=== PATIENT | male | born 1955 | race Caucasian/White ===

== ENCOUNTER 2019-02-01 00:59 | Outpatient (CLI) | payer OTHER, SELFPAY ==
[2019-02-01 10:28] LABS: ALT 36 U/L (12-78); AST 20 U/L (15-37); Albumin 3.8 g/dL (3.4-5.0); Alkaline Phosphatase 91 U/L (46-116); Anion Gap 12.6 mmol/L (3-11); BUN 27 mg/dL (7-18); Bilirubin, Total 0.4 mg/dL (0.2-1.0); CO2 24.4 mmol/L (21.0-32.0); CREATININE 0.96 mg/dL (0.70-1.30); Calcium 8.7 mg/dL (8.5-10.1); Calculated LDL 57 mg/dL; Chloride 107 mmol/L (98-107); Cholesterol 115 mg/dL (50-200); Glucose 109 mg/dL (70-100); HDL Cholesterol 48 mg/dL (40-60); Potassium 4.4 mmol/L (3.5-5.1); Sodium 144 mmol/L (136-145); Total Protein 6.8 g/dL (6.4-8.2); Triglyceride 51 mg/dL (30-150)
[2019-02-03 10:12] LABS: PSA, Screening 0.3 ng/ml (0-4.5)
== END 2019-02-01 01:19 ==
PROVIDERS: PCP Family Medicine; Visit Provider Family Medicine
DX: E78.5 Hyperlipidemia, unspecified (principal); I10 Essential (primary) hypertension; Z00.00 Encounter for general adult medical examination without abnormal findings; Z12.5 Encounter for screening for malignant neoplasm of prostate
CPT/HCPCS: 36415; 80053; 80061; 83721; 84153

== ENCOUNTER 2019-05-01 00:37 | Outpatient (CLI) | payer OTHER, SELFPAY ==
[2019-05-01 07:14] LABS: Abs Immature Grans 0.01 k/cumm (0.0-0.09); Absolute Basophil Count 0.01 k/cumm (0.0-0.2); Absolute Eosinophil Count 0.15 k/cumm (0.0-0.7); Absolute Lymphocyte Count 1.26 k/cumm (1.2-3.4); Absolute Monocyte Count 0.38 k/cumm (0.11-0.7); Absolute Neutrophil Count 2.54 k/cumm (1.2-6.7); Basophils % 0.2; Eosinophils % 3.4; HCT 42.9 % (40.0-50.0); HGB 14.9 g/dL (13.5-17.5); Immature Grans % 0.2; Mean Corp. HGB Concentration 34.7 g/dL (32.0-36.0); Mean Corpuscular Hemoglobin 32.3 pg (27.0-33.0); Mean Corpuscular Volume 92.9 fL (80-95); Mean Platelet Volume 8.9 fL (8.0-11.0); Monocytes % 8.7; Neutrophils % 58.5; Platelet Count 174 x1000/uL (130-400); RBC 4.62 m/cumm (4.50-6.00); RBC Distribution Width 12.3 % (11.8-14.1); White Blood Cell Count 4.35 k/cumm (4.4-10.8)
[2019-05-01] MEDS: Omnipaque 350 MG/ML 50 ML BTL IJ (07:14)
[2019-05-01 07:21] LABS: CREATININE 1.06 mg/dL (0.70-1.30)
[2019-05-01 07:25] LABS: C-Reactive Protein < 0.05 mg/dL (0.0-0.3)
--- NOTE | 2019-05-01 08:32 | DI.CT_ITS ---
EXAM: CT ABDOMEN PELVIS W CT ABDOMEN PELVIS W CLINICAL HISTORY: low abd pain,abnl wt loss,r63.4,r10.9. low abd pain,abnl wt loss,r63.4,r10.9 TECHNIQUE: Imaging Protocol: Axial computed tomography images with coronal and sagittal reformatted images were created and reviewed Images were performed from the lung bases through the ischial tuberosities after IV and oral contrast . CONTRAST MATERIAL: Intravenous: Omnipaque 350 Contrast volume:structured data in ml Contrast route:I V - Oral: yes COMPARISON: No exams were available for comparison FINDINGS: ABDOMEN: Lung Bases: Normal where visualized. The heart size is normal. Coronary artery calcifications are no shantal. Liver: Normal density. No measurable mass. Gallbladder and biliary tract: No radiodense calculus or dilation. Pancreas: Normal density, no abnormal calcifications or inflammatory process. Spleen: Normal. Kidneys: Normal size, contour and axis. No radiodense stones or obstructive uropathy. No masses seen. Adrenal glands: No masses seen. Abdominal Aorta: Abdominal portion non-dilated. Mild atherosclerotic changes. PELVIS: Bladder: No gross wall thickening, focal mass or stones. Bowel: No obstruction or bowel wall thickening. Peritoneal cavity: No ascites, focal collection or mesenteric inflammatory response. Bones: No suspicious lesions or fractures. Reproductive organs: Degenerative disc changes are noted at L4-5 and L5-S1. Lymph nodes: Unremarkable. There are bilateral fatty containing inguinal hernias and a small fatty umbilical hernia. Impression: Unremarkable CT scan of the abdomen and pelvis. DATA REPOSITORY: All CT scans at this facility are submitted to the National Radiology Data Registry (NRDR) Dose Index Registry (DIR) with the [employer] (ACR). RADIATION OPTIMIZATION: All CT scans at this facility use at least one of these dose optimization te chniques: automated exposure control; mA and/or kV adjustment per patient size (includes targeted exa ms where dose is matched to clinical indication); or iterative reconstruction.
[2019-05-01] MEDS: Omnipaque 350 MG/ML 100 ML BTL IJ (08:34)
== END 2019-05-01 00:57 ==
PROVIDERS: PCP Family Medicine; Visit Provider Emergency Medicine
DX: R10.31 Right lower quadrant pain (principal); R10.32 Left lower quadrant pain; R63.4 Abnormal weight loss; K40.20 Bilateral inguinal hernia, without obstruction or gangrene, not specified as recurrent; K42.9 Umbilical hernia without obstruction or gangrene
CPT/HCPCS: 74177; 82565; 85025; 86140; J3490; Q9967

== ENCOUNTER 2020-01-12 03:13 | Outpatient (CLI) | payer OTHER, SELFPAY ==
[2020-01-12 07:58] LABS: Hemoglobin A1C 5.5 % (3.8-5.6)
[2020-01-12 08:31] LABS: ALT 37 U/L (16-63); AST 27 U/L (15-37); Albumin 4.2 g/dL (3.4-5.0); Alkaline Phosphatase 101 U/L (46-116); Anion Gap 10.6 mmol/L (3-11); BUN 18 mg/dL (7-18); Bilirubin, Total 0.7 mg/dL (0.2-1.0); CO2 24.4 mmol/L (21.0-32.0); CREATININE 1.22 mg/dL (0.70-1.30); Calculated LDL 72 mg/dL (<100); Chloride 103 mmol/L (98-107); Cholesterol 132 mg/dL (<200); Glucose 171 mg/dL (74-106); HDL Cholesterol 45 mg/dL (40-60); Potassium 4.2 mmol/L (3.5-5.1); Sodium 138 mmol/L (136-145); Total Protein 7.1 g/dL (6.4-8.2); Triglyceride 79 mg/dL (<150)
[2020-01-13 09:43] LABS: PSA, Screening 0.3 ng/mL (0.0-4.5)
== END 2020-01-12 03:33 ==
PROVIDERS: PCP Family Medicine; Visit Provider Family Medicine
DX: E78.5 Hyperlipidemia, unspecified (principal); I10 Essential (primary) hypertension; Z00.00 Encounter for general adult medical examination without abnormal findings; E11.9 Type 2 diabetes mellitus without complications; Z12.5 Encounter for screening for malignant neoplasm of prostate
CPT/HCPCS: 36415; 80053; 80061; 84153; 83036

== ENCOUNTER 2021-06-17 18:49 | Outpatient (REF) | payer OTHER, SELFPAY ==
[2021-06-19 06:00] LABS: COVID-19 RT-PCR UVMMC Result Positive (Negative)
== END 2021-06-17 18:50 | disposition home or self-care (01) ==
LOC: LBN 18:49
PROVIDERS: PCP Family Medicine; Visit Provider Physician Assistant
DX: Z20.822 Contact with and (suspected) exposure to COVID-19 (principal)
CPT/HCPCS: U0003

== ENCOUNTER 2021-07-18 00:27 | Outpatient (CLI) | payer OTHER, SELFPAY ==
--- NOTE | 2021-07-18 09:00 | ETT_ITS ---
APPROVED REPORT Exam: Exercise Treadmill Patient Location: Out-Patient Room/Bed: Stress Nurse: Jojo Madden RN Ordering Provider:VIET CARDENAS, Contact Number: [phone] BMI: 33.44 Baseline Rhythm: Sinus Rhythm Comment: Baseline ST-T abnormalities V2-V5 Indications: CAD, hyperlipidemia Medical History Medical History: Hypertension, hyperlipidemia, PRETTY, CAD, myocardial infarction 2013, GERD Cardiac Medications: Lisinopril, aspirin, nitroglycerin Allergies: Enoxaparin Cardiac Risk Factors: Hypertension, hyperlipidemia, smoker (former), CVD, family hx Previous Cardiac Procedures: pci w/ stent 10/2013 Pretest Chest Pain Characteristics: None Exercise History: Sedentary Physical Disabilities: None Lung Sounds: Clear to auscultation, Clear to auscultation Heart Sounds: Tachycardia Stress Test Details Test: Exercise stress testing was performed using a Yosef protocol. Rest Stress HR Resting HR Supine: 98 bpm Max Heart Rate (APMHR): 154 bpm Resting HR Standin bpm Target HR (85% APMHR): 130 bpm Max HR Achieved: 156 bpm % of APMHR: 101 Recovery HR: 105 bpm HR response to stress: Normal HR response to stress BP Resting BP Supine: 158/90 mmHg Resting BP Standin/92 mmHg Max BP: 198/100 mmHg Recovery BP: 130/86 mmHg BP response to stress: Normal blood pressure response to stress. ECG Resting ECG: Sinus Rhythm Ectopy: None Comment: Baseline ST-T abnormalities V2-V5 Stress ECG: Sinus Tachycardia ST Change: No significant ST segment changes noted Arrhythmia: Occasional multifocal PVCs Recovery ECG: Sinus Tachycardia Recovery ST Change: No significant ST segment changes noted Recovery Arrhythmia: Rare PACs, occasional multifocal PVCs Clinical Reason for Termination: Fatigue Stress Symptoms: General Fatigue, mild dyspnea Exercise duration: 9 min00 sec Highest Stage Reached: Stage 3: 3.4 mph at 14% grade. Exercise capacity: 10.16 METs Sylvester Treadmill Score: 8.1 Rate Pressure Product: 97799 Stress ECG Conclusion 1. Resting electrocardiogram shows left anterior fascicular block, old anterior myocardial infarction 2. Patient exercised on the Yosef protocol and completed a workload of 10.16 METS, limited by fatigue 3. Normal heart rate and blood pressure response to exercise. The patient achieved greater than 100% of predicted heart rate for age 4. Electrocardiographically there was no evidence of myocardial ischemia 5. Atrial and ventricular ectopic beats were noted Sylvester Treadmill Score is 8.1 which is Low risk. Stress Test Summary STAGE Time (mins) Speed (mph) Grade (%) HR BP SYMPTOMS METS Supine 98 158/90 Standing 110 160/92 SpO2 96% 1 3 1.7 10 135 182/100 SpO2 96% 4.6 2 6 2.5 12 148 196/102 Mild SOB, SpO2 96% 7 3 9 3.4 14 154 198/100 SpO2 97% 10.2 1 min recovery 145 196/98 SpO2 97% 3 min recovery 118 160/90 SOB resolved, SpO2 97% 6 min recovery 110 140/90 SpO2 97% 9 min recovery 105 130/86 SpO2 97%
== END 2021-07-18 00:47 ==
PROVIDERS: PCP Family Medicine; Visit Provider Family Medicine
DX: E78.5 Hyperlipidemia, unspecified (principal); I10 Essential (primary) hypertension; I25.10 Atherosclerotic heart disease of native coronary artery without angina pectoris; Z87.891 Personal history of nicotine dependence; Z82.49 Family history of ischemic heart disease and other diseases of the circulatory system; I49.3 Ventricular premature depolarization; I44.4 Left anterior fascicular block; I49.1 Atrial premature depolarization
CPT/HCPCS: 93017

== ENCOUNTER 2021-07-25 03:42 | Outpatient (CLI) | payer OTHER, SELFPAY ==
[2021-07-25 09:04] LABS: Hemoglobin A1C 5.7 % (<5.7)
[2021-07-25 09:47] LABS: ALT 46 U/L (16-63); AST 27 U/L (15-37); Albumin 4.3 g/dL (3.4-5.0); Alkaline Phosphatase 104 U/L (46-116); Anion Gap 10.4 mmol/L (3-11); BUN 19 mg/dL (7-18); Bilirubin, Total 0.8 mg/dL (0.2-1.0); CO2 25.6 mmol/L (21.0-32.0); CREATININE 1.2 mg/dL (0.70-1.30); Calcium 9.2 mg/dL (8.5-10.1); Calculated LDL 64 mg/dL (<100); Chloride 102 mmol/L (98-107); Cholesterol 138 mg/dL (<200); Glucose 121 mg/dL (74-106); HDL Cholesterol 52 mg/dL (40-60); Potassium 4.1 mmol/L (3.5-5.1); Sodium 138 mmol/L (136-145); TSH (W/Ref FT4) 1.87 uIU/mL (0.36-3.74); Total Protein 7.5 g/dL (6.4-8.2); Triglyceride 112 mg/dL (<150)
[2021-07-25 18:20] LABS: PSA, Diagnostic 0.4 ng/mL (0.0-4.5)
== END 2021-07-25 03:43 | disposition home or self-care (01) ==
LOC: LBO 03:43
PROVIDERS: PCP Family Medicine; Visit Provider Family Medicine
DX: E11.9 Type 2 diabetes mellitus without complications (principal); E78.5 Hyperlipidemia, unspecified; I10 Essential (primary) hypertension; N28.9 Disorder of kidney and ureter, unspecified; Z00.00 Encounter for general adult medical examination without abnormal findings; N40.0 Benign prostatic hyperplasia without lower urinary tract symptoms
CPT/HCPCS: 36415; 80053; 80061; 83036; 84153; 84443

== ENCOUNTER 2022-11-29 03:29 | Outpatient (CLI) | payer OTHER, SELFPAY ==
[2022-11-29 09:58] LABS: HCT 42.4 % (40.0-50.0); HGB 14.6 g/dL (13.5-17.5); MCH 32.2 pg (27.0-33.0); MCHC 34.4 % (32.0-36.0); MCV 94 fL (80-95); MPV 8.4 fL (8.0-11.0); Platelet Count 161 10^3/uL (130-400); RBC 4.53 10^6/uL (4.36-5.78); RDW 11.8 % (11.8-14.1); RDW-SD 40.7 fL; WBC 4.78 10^3/uL (4.4-10.8)
[2022-11-29 10:26] LABS: Hemoglobin A1C 6.2 % (<5.7)
[2022-11-29 11:00] LABS: ALT 59 U/L (16-63); AST 39 U/L (15-37); Alkaline Phosphatase 97 U/L (46-116); Anion Gap 10.9 mmol/L (3-11); BUN 25 mg/dL (7-18); Bilirubin, Total 0.5 mg/dL (0.2-1.0); CO2 25.1 mmol/L (21.0-32.0); CREATININE 1.1 mg/dL (0.70-1.30); Calcium 9.3 mg/dL (8.5-10.1); Calculated LDL 54 mg/dL (<100); Chloride 105 mmol/L (98-107); Cholesterol 123 mg/dL (<200); Estimated GFR 73.58 (mL/min/1.73m2); Glucose 157 mg/dL (74-106); HDL Cholesterol 51 mg/dL (40-60); Potassium 4.4 mmol/L (3.5-5.1); Sodium 141 mmol/L (136-145); TSH (W/Ref FT4) 2.04 uIU/mL (0.36-3.74); Total Protein 7.6 g/dL (6.4-8.2); Triglyceride 94 mg/dL (<150)
== END 2022-11-29 03:30 | disposition home or self-care (01) ==
LOC: LBO 03:29
PROVIDERS: PCP Family Medicine; Visit Provider Family Medicine
DX: E11.9 Type 2 diabetes mellitus without complications (principal); E78.5 Hyperlipidemia, unspecified; I25.10 Atherosclerotic heart disease of native coronary artery without angina pectoris; G47.30 Sleep apnea, unspecified
CPT/HCPCS: 36415; 80053; 80061; 85027; 83036; 84443

== ENCOUNTER 2023-03-12 11:54 | Outpatient (CLI) | payer OTHER, SELFPAY ==
--- NOTE | 2023-03-12 11:45 | RT.EKG_ITS ---
APPROVED REPORT Exam: Resting ECG Reason for Exam: Tachycardia Patient Location: O HR:59 bpm ECG Measurements Heart Rate 59 AXIS AR 182 P 17 QRSd 97 QRS -47 QT 429 T 75 QTc 425 Conclusion Sinus rhythm...normal P axis, V-rate 50- 99 Inferior infarct, old...Q >35mS, II III aVF Anterior infarct, age indeterminate...Q >35mS, T neg, in V2-V5 I have reviewed and I agree with the emergency room physician's ECG interpretation.
== END 2023-03-12 11:55 | disposition home or self-care (01) ==
LOC: DI.CM 11:54
PROVIDERS: PCP Family Medicine; Visit Provider Family Medicine
DX: R00.0 Tachycardia, unspecified (principal)
CPT/HCPCS: 93010

== ENCOUNTER 2023-04-05 08:54 | Outpatient (RCR) | payer OTHER, SELFPAY ==
--- NOTE | 2023-04-05 09:00 | HOLTER_ITS ---
APPROVED REPORT Conclusion This is a 48-hour Holter monitor ordered for tachycardia Rhythm throughout was sinus with an average heart rate of 77. Minimum was 54, maximum 126 There were very rare isolated atrial premature beats There were occasional ventricular ectopic beats There was no atrial fibrillation, no SVT, no high-grade AV block, no pauses greater than 3 seconds No patient symptoms were reported
== END 2023-04-14 23:59 | disposition home or self-care (01) ==
LOC: CARDOPNVT 08:54
PROVIDERS: PCP Family Medicine; Visit Provider Family Medicine
DX: R00.0 Tachycardia, unspecified (principal)
CPT/HCPCS: 93225; 93226

== ENCOUNTER 2023-05-24 02:20 | Outpatient (CLI) | payer OTHER, SELFPAY ==
[2023-05-24 11:28] LABS: ESR 5 mm/hr (0-20)
[2023-05-24 11:29] LABS: HCT 43.6 % (40.0-50.0); HGB 14.9 g/dL (13.5-17.5); MCH 31.4 pg (27.0-33.0); MCHC 34.2 % (32.0-36.0); MCV 92 fL (80-95); MPV 8.4 fL (8.0-11.0); Platelet Count 176 10^3/uL (130-400); RBC 4.74 10^6/uL (4.36-5.78); RDW 11.8 % (11.8-14.1); RDW-SD 39.7 fL; WBC 5.76 10^3/uL (4.4-10.8)
[2023-05-24 12:23] LABS: Hemoglobin A1C 5.7 % (<5.7)
[2023-05-24 13:02] LABS: ALT 57 U/L (16-63); AST 41 U/L (15-37); Albumin 4.4 g/dL (3.4-5.0); Alkaline Phosphatase 88 U/L (46-116); Anion Gap 10.3 mmol/L (3-11); BUN 21 mg/dL (7-18); Bilirubin, Total 0.5 mg/dL (0.2-1.0); CO2 24.7 mmol/L (21.0-32.0); CREATININE 1.1 mg/dL (0.70-1.30); Calculated LDL 54 mg/dL (<100); Chloride 103 mmol/L (98-107); Cholesterol 138 mg/dL (<200); Estimated GFR 73.12 (mL/min/1.73m2); Glucose 119 mg/dL (74-106); HDL Cholesterol 56 mg/dL (40-60); Potassium 4.2 mmol/L (3.5-5.1); Sodium 138 mmol/L (136-145); Triglyceride 144 mg/dL (<150)
[2023-05-24 15:17] LABS: GGT 140 U/L (15-85)
== END 2023-05-24 02:21 | disposition home or self-care (01) ==
LOC: LBO 02:20
PROVIDERS: PCP Family Medicine; Visit Provider Family Medicine
DX: I10 Essential (primary) hypertension (principal); I25.2 Old myocardial infarction; R53.83 Other fatigue; E11.9 Type 2 diabetes mellitus without complications
CPT/HCPCS: 36415; 80053; 80061; 85027; 85652; 82977; 83036

== ENCOUNTER → 2023-06-04 02:08 | Outpatient (CLI) | payer OTHER, SELFPAY ==
--- NOTE | 2023-06-04 07:30 | ETT_ITS ---
APPROVED REPORT Exam: Exercise Treadmill Patient Location: Out-Patient Room/Bed: Stress Nurse: Trent Lopes RN Ordering Provider:VIET CADRENAS, Contact Number: [phone] BMI: 34.76 Baseline Rhythm: Sinus Tachycardia Comment: 2 episodes of sudden decrease HR to 74 rebounding to 104 spontanioulsy. Indications: Old [place]. Fatigue. CDL requirement. Medical History Medical History: [place],Sleep apnea, HTN, HLD, abnormal renal function. Cardiac Medications: ASA, Atorvastatin, Lisinopril, Metoprolol, Pantoprozole. Allergies: Lovenox. Cardiac Risk Factors: HTN, Hyperlipidemia, TX, sleep apnea. Previous Cardiac Procedures: Stent. Pretest Chest Pain Characteristics: No chest pain Exercise History: Physically active Lung Sounds: clear Heart Sounds: Regular Stress Test Details Test: Exercise stress testing was performed using a Yosef protocol. Rest Stress HR Resting HR Supine: 104 bpm Max Heart Rate (APMHR): 152 bpm Resting HR Standin bpm Target HR (85% APMHR): 129 bpm Max HR Achieved: 152 bpm % of APMHR: 100 Recovery HR: 105 bpm HR response to stress: Normal HR response to stress BP Resting BP Supine: 130/86 mmHg Resting BP Standin/96 mmHg Max BP: 150/96 mmHg Recovery BP: 122/80 mmHg BP response to stress: Normal blood pressure response to stress. ECG Resting ECG: Sinus Tachycardia Ectopy: None Stress ECG: Sinus Tachycardia ST Change: No significant ST segment changes noted Arrhythmia: Ocasional Unifocal PVC. Recovery ECG: Sinus Tachycardia. Recovery Arrhythmia: None Clinical Reason for Termination: Fatigue, Target HR Achieved Exercise duration: 5 min33 sec Highest Stage Reached: 2 Exercise capacity: 7.05 METs Angina Score: None Sylvester Treadmill Score: 5.4 Rate Pressure Product: 32609 Stress ECG Conclusion 1. Resting electrocardiogram showed low voltage, poor R wave progression possible old anterior infarc t 2. Patient exercised on the Yosef protocol completed a workload of 7 METS 3. Normal heart rate blood pressure response to exercise. Patient achieved 100% of predicted heart r ate for age 4. There was no electrocardiographic evidence of myocardial ischemia 5. There were no significant dysrhythmias Sylvester Treadmill Score is 5.4 which is Low risk. Stress Test Summary STAGE Time (mins) Speed (mph) Grade (%) HR BP SpO2 SYMPTOMS METS Supine 104 130/86 97 Standing 110 146/96 1 3 1.7 10 140 150/96 96 4.5 1 min recovery 138 179/72 98 3 min recovery 114 150/86 6 min recovery 105 122/80 98
== END ==
PROVIDERS: PCP Family Medicine; Visit Provider Family Medicine
DX: I25.2 Old myocardial infarction (principal); R53.83 Other fatigue
CPT/HCPCS: 93017

== ENCOUNTER 2023-12-18 09:02 | Day surgery (SDC) | payer OTHER, SELFPAY ==
--- NOTE | 2023-12-17 14:07 | NUR.NOTE ---
Patient was very short on the phone during Pre op phone call. Reports he doesn't really know all his medications. Patient reports he will look at his list later. Unable to truly verify the medications completely. Patient called because he was concerned about starting the prep when [facility] has no water. Patient told that at this time his procedure was still going to proceed as planned. Nursing Note:
[2023-12-18 09:10] VITALS: BP 112/70; PULSE 61; RESP 16; TEMP 36.2; O2SAT 98
--- NOTE | 2023-12-18 09:17 | W.ANESPRE ---
General Info Date of Service Date Performed: 12/18/23 Height: 5 ft 7 in Weight: 99.337 kg Body Mass Index (BMI): 34.2 Surgical Procedure: Operation Date: 12/18/23 10:35 Proposed Procedure Side Surgeon neda He MD Meds Allergies and Home Medications Allergies Allergy/AdvReac Type Severity Reaction Status Date / Time enoxaparin sodium Allergy Intermediate RASH Verified 12/18/23 09:38 [From Lovenox] Home Medication Medication Instructions Recorded acetaminophen 500 mg tablet 1,000 mg PO Q4H PRN 12/21/14 aspirin,buffered (calcium 325 mg PO DAILY ##1 09/28/16 carbonate-magnesium) 325 mg tablet cbd PO HS 07/31/22 lisinopril 10 mg tablet 10 mg PO BID #180 tab-caps 02/19/23 atorvastatin 80 mg tablet 80 mg PO DAILY #90 tab-caps 12/14/23 metoprolol succinate 25 mg 25 mg PO DAILY #90 tabs 12/14/23 tablet,extended release 24 hr nitroglycerin 0.4 mg sublingual 0.4 mg sublingual as directed PRN 12/14/23 tablet chest pain #25 tabs pantoprazole 40 mg tablet,delayed 40 mg PO DAILY #90 tab-caps 12/14/23 release rnwwreoy-yciijdti-djuqk acid 400 1 tab PO HS 12/18/23 mcg-vit K 20 mcg-lycop 300 mcg tablet (One-A-Day Men's Multivitamin) sour curtis extract 1,000 mg 1,200 mg PO DAILY AM 12/18/23 capsule (Tart Curtis Extract) Current Visit Medications: Current Medications Generic Name Dose Route Start Last Admin Trade Name Alexq PRN Reason Stop Dose Admin Ringer's Solution 1,000 mls @ 80 mls/hr 12/18/23 06:00 IV 12/18/23 23:59 INFUSION RIZWAN IV Miscellaneous Supplies 1 each 12/18/23 06:00 Iv Access IV 12/18/23 23:59 DIRECTED RIZWAN Sodium Chloride 0 ml 12/18/23 06:00 Normal Saline Flush 10 Ml Syr IV 12/18/23 23:59 PRN PRN Sodium Chloride 0 ml 12/18/23 06:00 Normal Saline 10 Ml Vial IJ 12/18/23 23:59 DIRECTED PRN Sterile Water 0 ml 12/18/23 06:00 Water,Injection,Sterile 10 Ml Vial IJ 12/18/23 23:59 DIRECTED PRN [facility] Active Problems Active Problems: Problem Status Onset Code Tremor R25.1 Adenoma D36.9 Headache R51.9 Fatigue R53.83 History of [place] (myocardial infarction) I25.2 Tachycardia R00.0 CAD (coronary artery disease) I25.10 COVID-19 ~06/2021 U07.1 Left elbow pain M25.522 Rastafari tenderness R51 Tremor of left hand R25.1 Left foot pain M79.672 Annual physical exam Z00.00 Sleep apnea G47.30 Varicose veins of lower extremity I83.90 Primary malignant neoplasm of colon C18.9 Low back pain M54.5 Hyperlipidemia E78.5 Frequent nosebleeds 05/29/17 R04.0 Essential hypertension 04/30/13 I10 Diverticulosis of colon without diverticulitis K57.30 Alcohol intake above recommended sensible limits Z72.89 Acute myocardial infarction 11/10/13 I21.9 Abnormal renal function 03/01/14 N28.9 Medical History Medical History Abnormal renal function (03/01/14) Acute myocardial infarction (~2013) Acute myocardial infarction (11/10/13) [facility] [place] Acute shoulder pain 07/10/17 Acute shoulder pain (07/10/17) Adenomatous colon polyp 2008 Alcohol intake above recommended sensible limits presently no alcohol times 6 months 04/28 Annual physical exam (09/28/16) Diverticulosis of colon without diverticulitis Essential hypertension (04/30/13) Frequent nosebleeds (05/29/17) Generalized abdominal pain 06/14/03 H. Pylori-equivocal HTN (hypertension) Hyperlipidemia Hyperplastic polyp of large intestine 2011 Infectious mononucleosis Inguinal hernia bilateral, non-recurrent Low back pain Pneumonia h/o legionere's pneumonia Polyp of colon 11/13/11--hyperplastic Primary malignant neoplasm of colon 2007-malignant polyp removed colonoscopy 09/07/08 Sleep apnea probable; no W/U yet Sleep apnea Snoring Tubular adenoma X 2; 09/07/08 Varicose veins of lower extremity left scrotal Surgical History Surgical History Colonoscopy - MAC (03/05/17) 09/07/08 2 T.A. 11/13/11 HYPERPLASTIC POLYP S/P adenoidectomy S/P tonsillectomy S/P vasectomy Status post adenoidectomy Status post tonsillectomy Status post vasectomy Stent placement (~10/2013) [facility] [place]; RESOLUTE 3.0 mm X 18mm.[id number] Tonsillectomy and adenoidectomy Vasectomy Tobacco Smoking/Tobacco Use Status: Former Tobacco Use Passive smoking exposure: No Second hand exposure: Yes Alcohol Alcohol Intake: current Alcohol intake frequency: 3 or more drinks per day Alcohol type: beer and wine Substance Use Substance use: Never Substance use type: does not use Vital Signs and Lab Results Vital Signs Most Recent Vital Signs in EMR: Temp Pulse Resp BP Pulse Ox 36.2 C L 61 16 112/70 98 12/18/23 09:10 12/18/23 09:10 12/18/23 09:10 12/18/23 09:10 12/18/23 09:10 Lab Results Blood Type / Crossmatch: No Data to Display Complete Blood Count: No Data to Display Complete Metabolic Panel: No Data to Display Liver Function Panel: No Data to Display Coagulation Panel: No Data to Display Cardiac Panel: No Data to Display Arterial Blood Gas: No Data to Display Venous Blood Gas: No Data to Display Pancreas Panel: No Data to Display Thyroid Panel: No Data to Display Infectious Disease: No Data to Display Blood Cultures: No Data to Display Toxicology Panel: No Data to Display Imaging and Studies Imaging and Studies Study information below may be from another EMR and interpreted by another provider. Please see original notes in EMR for more complete details. EKG Summary: EKG PATIENT NAME: Rey Shen UNIT #: [id number] ORDERING PROVIDER: Yana Loza M.D., DC PRIMARY CARE PROVIDER: YANA LOZA MD, DC DATE/TIME OF SERVICE: 03/12/23 1144 : 1955 PERFORMING LOCATION: [facility] APPROVED REPORT Exam: Resting ECG Reason for Exam: Tachycardia Patient Location: O HR:59 bpm ECG Measurements Heart Rate 59 AXIS TN 182 P 17 QRSd 97 QRS -47 QT 429 T75 QTc 425 Conclusion Sinus rhythm...normal P axis, V-rate 50- 99 Inferior infarct, old...Q >35mS, II III aVF Anterior infarct, age indeterminate...Q >35mS, T neg, in V2-V5 I have reviewed and I agree with the emergency room physician's ECG interpretation. <Electronically signed by JENNIFER CEDILLO MD in OV> E-Sign Date: 03/13/23 E-Sign Time: 808 Stress Test Summary: STRESS TEST PATIENT NAME: Rey Shen UNIT #: [id number] ORDERING PROVIDER: Yana Loza M.D., DC PRIMARY CARE PROVIDER: YANA LOZA MD, DC DATE/TIME OF SERVICE: 06/04/23 ADMITTING PROVIDER: NGUYEN WALTON,JENNIFER CARPENTER : 1955 APPROVED REPORT Exam: Exercise Treadmill Patient Location: Out-Patient Room/Bed: Stress Nurse: Trent Lopes, RN Ordering Provider:YANA LOZA, Contact Number: [phone] BMI: 34.76 Baseline Rhythm: Sinus Tachycardia Comment: 2 episodes of sudden decrease HR to 74 rebounding to 104 spontanioulsy. 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 Fatigue. CDL requirement. Medical History Medical History: [place],Sleep apnea, HTN, HLD, abnormal renal function. Cardiac Medications: ASA, Atorvastatin, Lisinopril, Metoprolol, Pantoprozole. Allergies: Lovenox. Cardiac Risk Factors: HTN, Hyperlipidemia, IL, sleep apnea. Previous Cardiac Procedures: Stent. Pretest Chest Pain Characteristics: No chest pain Exercise History: Physically active Lung Sounds: clear Heart Sounds: Regular Stress Test Details Test: Exercise stress testing was performed using a Yosef protocol. Rest Stress HR Resting HR Supine: 104 bpmMax Heart Rate (APMHR): 152 bpm Resting HR Standin bpmTarget HR (85% APMHR): 129 bpm Max HR Achieved: 152 bpm % of APMHR: 100 Recovery HR: 105 bpm HR response to stress: Normal HR response to stress BP Resting BP Supine: 130/86 mmHg Resting BP Standin/96 mmHg Max BP: 150/96 mmHg Recovery BP: 122/80 mmHg BP response to stress: Normal blood pressure response to stress. ECG Resting ECG: Sinus Tachycardia Ectopy: None Stress ECG: Sinus Tachycardia ST Change: No significant ST segment changes noted Arrhythmia: Ocasional Unifocal PVC. Recovery ECG: Sinus Tachycardia. Recovery Arrhythmia: None Clinical Reason for Termination: Fatigue, Target HR Achieved Exercise duration: 5 min33 sec Highest Stage Reached: 2 Exercise capacity: 7.05 METs Angina Score: None Sylvester Treadmill Score: 5.4 Rate Pressure Product: 85132 Stress ECG Conclusion 1. Resting electrocardiogram showed low voltage, poor R wave progression possible old anterior infarct 2. Patient exercised on the Yosef protocol completed a workload of 7 METS 3. Normal heart rate blood pressure response to exercise. Patient achieved 100% of predicted heart rate for age 4. There was no electrocardiographic evidence of myocardial ischemia 5. There were no significant dysrhythmias Sylvester Treadmill Score is 5.4 which is Low risk. Stress Test Summary STAGETime (mins)Speed (mph)Grade (%)[id number] Tlbkwtlc079409/96 [id number]/80474.5 1 min [id number]/7298 3 min [id number]/86 6 min [id number] Dictated by: JENNIFER CEDILLO MDHERINE Dictated:: 06/04/231537 <Electronically signed by Jennifer Cedillo M.D. in OV> 06/04/231539 Transcribed Date: 06/04/23 Transcribed Time: 1537 By: RENARD This is privileged, confidential information, intended only for the provider named. Any use or distribution by any person other than this provider is strictly prohibited. If you receive this report in error, please notify us immediately at [phone] and return the original report to us at the addr Echocardiogram Summary: Reviewed Anesthesia Assessment and Plan Anesthesia History Personal History: No History of Anesthesia Complications Family History: No Family History of Anesthesia Complications Exercise Tolerance Exercise Tolerance: Metabolic Equivalents>4 Pertinent Negatives Pertinent Negatives: No Symptoms of GERD Cardiac & Pulmonary Exam Cardiac Exam: Normal S1/S2 Heart Sounds Pulmonary Exam: Clear Bilateral Breath Sounds Implantable Cardiac Device Does patient have a Pacemaker or an ICD?: No Airway Exam Known Difficult Airway: No Mallampati Class: 2 Mouth Opening: Normal (> 3cm) Thyromental Distance: Greater than 3 cm Neck Range of Motion: Full ROM Neck Circumference: Normal Teeth Condition: Normal Dentition ASA Classification ASA Score: ASA 3 Emergency Case?: No NPO Status NPO Status: NPO Clears >2 hours, Solids >8 hours Anesthesia Plan Resuscitation Status: Full Code Anesthesia Technique: General Anesthesia Airway Planned: Natural Airway Monitors Used: Standard Monitors
--- NOTE | 2023-12-18 10:10 | W.COLOREPORT ---
Date of service: 12/18/23 Time of Service: 10:11 Colonoscopy Report Procedure Description: PROCEDURES PERFORMED: 1. Colonoscopy PREOPERATIVE DIAGNOSIS: Surveillance colonoscopy POSTOPERATIVE DIAGNOSIS: Minimal sigmoid diverticular changes SURGEON: Calvin He MD INDICATION FOR PROCEDURE: the patient is a 68-year-old man due for a surveillance colonoscopy. He has no symptoms. Reportedly had a large polyp removed many years ago but colonoscopies since have been negative. FINDINGS: The terminal ileum was normal. No new polyps were found. In the sigmoid colon a large tattoo is noted with no evidence of polyp growth anywhere nearby or within the tattoo itself. The sigmoid colon has diverticular changes present but without bill diverticulosis yet. No significant hemorrhoid disease. Benign fibroepithelial tags both internal and external around the anus. SURVEILLANCE interval/FOLLOW-UP: I think the patient can go 10 years at this point before his next colonoscopy SPECIMENS: None EBL: Minimal COMPLICATIONS: None QUALITY of prep: Excellent Procedure in detail: The patient gave written consent and was in agreement with the indications, the potential risks as well as the benefits of the procedure. They were taken to the endoscopy suite and laid in the left lateral decubitus position. A timeout was performed and anesthesia was administered which was tolerated well. I started the procedure. Digital rectal and visual examination was performed and grossly within normal limits. A well-lubricated flexible colonoscope was then introduced and passed without any notable difficulty all the way to the cecum identified by the ileocecal valve and the appendiceal orifice. The terminal ileum was intubated and looked normal. The scope was then slowly withdrawn with the above-noted findings. The patient tolerated the procedure well and was taken to the PACU in hemodynamically stable condition.
--- NOTE | 2023-12-18 10:11 | W.PM.DSUDISC ---
Date of service: 12/18/23 Time of Service: 10:11 Discharge Plan Disposition Patient Disposition: Home Condition: Good Discharge Details Attending Provider: Kleber He Primary Care Provider: Yana Loza Home Meds and New Rx's Prescriptions: No Action cbd PO HS acetaminophen 500 MG tablet 1,000 mg PO Q4H PRN Patient Comments: 07/10/17 does not take. DL aspirin,buffd-calcium carb-mag 325 MG tablet 325 mg PO DAILY Qty: 1 lisinopril 10 mg tablet 10 mg PO BID Qty: 180 3RF nitroglycerin 0.4 mg tablet, sublingual 0.4 mg Sublingual as directed PRN (Reason: chest pain) Qty: 25 0RF Rx Instructions: One at onset of chest pain. May repeat in 20 minutes metoprolol succinate 25 mg tablet extended release 24 hr 25 mg PO DAILY Qty: 90 5RF atorvastatin 80 mg tablet 80 mg PO DAILY Qty: 90 4RF pantoprazole 40 mg tablet,delayed release (DR/EC) 40 mg PO DAILY Qty: 90 4RF Tart Curtis Extract 1,000 mg capsule 1,200 mg PO DAILY AM One-A-Day Men's Multivitamin 400-20-300 mcg tablet 1 tab PO HS Discharge Instructions Additional Instructions: FINDINGS: No polyps were found. Everything else looks healthy. You have some very mild diverticular changes in your sigmoid colon. This is extremely common, benign and nothing needs to be done about it. Repeat another colonoscopy in 10 years. Activity:: Activity as Tolerated Diet:: As Tolerated
[2023-12-18] MEDS: Lactated Ringers 1,000 ML 80 ML IV (10:15)
[2023-12-18 10:25] VITALS: BMI 34.2
[2023-12-18 10:43] VITALS: BP 112/74; PULSE 62; RESP 16; TEMP 36.4; O2SAT 96
--- NOTE | 2023-12-18 10:53 | W.ANESPOSTOP ---
Postoperative Evaluation Date, Time and Location Date Performed: 12/18/23 Time Performed: 10:50 Patient Location: Day Surgery Unit Vital Signs Most Recent Imported Vital Signs: Most Recent Vital Signs Temp Pulse Resp BP Pulse Ox 36.4 C L 62 16 112/74 96 12/18/23 10:43 12/18/23 10:43 12/18/23 10:43 12/18/23 10:43 12/18/23 10:43 Pain Score Most Recent Pain Score: Most Recent Pain Score Pain Level 0 12/18/23 10:43 Assessment Mental Status: Awake (Alert & Oriented to Patient Baseline) Airway and Respiratory Function: Patent airway with normal (patient baseline) respiratory exam Cardiovascular Function: Hemodynamically Stable Hydration Status: Adequately Hydrated Nausea & Vomiting: No Nausea or Vomiting Pain: Pt. Denies Any Pain Peripheral Nerve Block: Patient did not receive a nerve block
[2023-12-18 10:56] VITALS: BP 137/79; PULSE 67; RESP 16; TEMP 36.4; O2SAT 98
== END 2023-12-18 11:23 | disposition home or self-care (01) ==
PROVIDERS: PCP Family Medicine; Visit Provider Student in an Organized Health Care Education/Training Program
PROC: 0DJD8ZZ Inspection of Lower Intestinal Tract, Via Natural or Artificial Opening Endoscopic (ICD-10-PCS; CPT 45378; principal; 2023-12-18 10:30)
DX: Z12.11 Encounter for screening for malignant neoplasm of colon (principal); I25.10 Atherosclerotic heart disease of native coronary artery without angina pectoris; G47.30 Sleep apnea, unspecified; K57.30 Diverticulosis of large intestine without perforation or abscess without bleeding
CPT/HCPCS: 45378; 00123; J2704

== ENCOUNTER 2024-11-06 09:36 | Outpatient (CLI) | payer OTHER, SELFPAY ==
[2024-11-06 12:35] LABS: ALT 38 U/L (16-63); AST 25 U/L (15-37); Albumin 4.2 g/dL (3.4-5.0); Alkaline Phosphatase 91 U/L (46-116); Anion Gap 8.7 mmol/L (3-11); BUN 18 mg/dL (7-18); Bilirubin, Total 0.7 mg/dL (0.2-1.0); CO2 28.3 mmol/L (21.0-32.0); Calcium 10.1 mg/dL (8.5-10.1); Chloride 103 mmol/L (98-107); Estimated GFR 81.47 (mL/min/1.73m2); Glucose 117 mg/dL (74-106); Potassium 4.5 mmol/L (3.5-5.1); Sodium 140 mmol/L (136-145); Total Protein 7.6 g/dL (6.4-8.2)
[2024-11-06 12:48] LABS: Hemoglobin A1C 5.9 % (<5.7)
[2024-11-06 13:38] LABS: Calculated LDL 42 mg/dL (<100); Cholesterol 120 mg/dL (<200); HDL Cholesterol 53 mg/dL (>or=40); Triglyceride 129 mg/dL (<150)
[2024-11-06 19:16] LABS: PSA, Diagnostic 0.3 ng/mL (<=4.5)
== END 2024-11-06 09:37 | disposition home or self-care (01) ==
PROVIDERS: PCP Family Medicine; Referring Provider Family Medicine; Visit Provider Family Medicine
DX: E11.9 Type 2 diabetes mellitus without complications (principal); N40.0 Benign prostatic hyperplasia without lower urinary tract symptoms; I10 Essential (primary) hypertension
CPT/HCPCS: 36415; 80053; 80061; 83036; 84153